=== PATIENT | female | born 1965 ===

== ENCOUNTER 2024-08-30 08:25 | Day surgery (SDC) | payer OTHER ==
[2024-08-30] MEDS ORDERED: FLUMAZENIL 0.5 MG/5 ML ML IV STA (12:34)
[2024-08-30] MEDS ORDERED: fentaNYL CITRATE 50 MCG/ML AMPUL IV PUSH ONE (12:45)
[2024-08-30] MEDS ORDERED: DIPHENHYDRAMINE HCL 50 MG/ML VIAL 1ML IV ONE (12:45)
[2024-08-30] MEDS ORDERED: ONDANSETRON HCL 2 MG/ML VIAL IV ONE (12:45)
[2024-08-30] MEDS ORDERED: MIDAZOLAM HCL 2 MG/2 ML VIAL IV ONE (12:45)
== END 2024-08-30 14:40 | disposition home or self-care (01) ==
LOC: AMB-ENDOS 08:25
PROVIDERS: ATTEND Colon & Rectal Surgery
DX: D12.3 Benign neoplasm of transverse colon (principal); K63.5 Polyp of colon; Z12.11 Encounter for screening for malignant neoplasm of colon; K57.30 Diverticulosis of large intestine without perforation or abscess without bleeding